=== PATIENT | male | born 1975 | race Caucasian/White ===

== ENCOUNTER → 2023-08-31 | Outpatient (CLI) | payer MEDICAID, SELFPAY ==
--- NOTE | 2023-08-31 10:05 | CT_ITS ---
EXAM: CT LEFT UPPER EXTREMITY WITHOUT INTRAVENOUS CONTRAST CLINICAL INDICATION: reverse Hill Sachs - do 3D RECONS PLS! TECHNIQUE: Helically acquired images were obtained of the left upper extremity without intravenous contrast. 2-D and 3-D reformats were performed by the technologist. This CT exam was performed using one or more of the following dose reduction techniques: automated exposure control, adjustment of the mA and/or kV according to patient size, and/or use of iterative reconstruction technique. RADIATION DOSE: CTDIvol = 24.62 mGy, DLP = 647.51 mGy-cm COMPARISON: Radiographs of the left shoulder of 08/17/2023. FINDINGS: BONES/JOINTS: Large defect in the anterior medial aspect of the humeral head consistent with reverse Hill-Sachs deformity. Adjacent faint soft tissue calcifications medially. No evidence of acute fracture or dislocation. The glenohumeral joint and acromioclavicular joint are otherwise unremarkable. SOFT TISSUES: No evidence of calcific tendinitis. No soft tissue swelling or gas. No radiopaque foreign body. CT/Extremity Upper without Contra IMPRESSION: 1. Large defect in the anterior medial aspect of the humeral head consistent with reverse Hill-Sachs deformity. 2. No evidence of acute fracture or dislocation. Electronically Signed: Marcus Ramos MD at 10:49 EDT ,
--- NOTE | 2023-08-31 10:10 | RAD_ITS ---
STUDY: X-RAY - LEFT SHOULDER REASON FOR EXAM: Male, 47 years old. ARTHROGRAM TECHNIQUE: 3 view(s) of the shoulder. COMPARISON: Comparison is made with prior study dated August 17, 2023. FINDINGS: Contrast is seen within the shoulder joint due to recent intra-articular contrast injection. RAD/Shoulder min 2 Views IMPRESSION: Intra-articular contrast injection is seen. MRI will follow. Electronically Signed: Huseyin Encarnacion MD at 15:36 EDT ,
--- NOTE | 2023-08-31 10:10 | MRI_ITS ---
STUDY: MRI ARTHROGRAM OF THE LEFT SHOULDER REASON FOR EXAM: Male, 47 years old. LARGE REVERSE HILL SACHS AFTER SEIZURE, INSTABILITY, PAIN, LIMITED ROM TECHNIQUE: 10 cc of dilute Clariscan contrast was injected into the left glenohumeral joint. MRI was obtained in all 3 orthogonal planes. In addition, a fat-suppressed T1-weighted sequence was performed with the patient''s arm in the abduction external rotation (ABER) position. COMPARISON: CT arthrogram of the left shoulder dated 08/31/2023. FINDINGS: Normal supraspinatus tendon. Normal infraspinatus tendon. Normal subscapularis tendon. Normal teres minor tendon. Normal supraspinatus muscle. Normal infraspinatus muscle. Normal subscapularis muscle. Normal teres minor muscle. There is a large osseous impaction fracture/defect of the lesser tuberosity of the humerus consistent with a reverse Hill-Sachs deformity. There is a cluster of displaced fracture fragments in the posterolateral glenohumeral joint recess, overall measuring up to 1.5 cm in diameter (axial T1 series 7 image 11; sagittal T1 series 5 images 13-14). There is also suggestion of small loose bodies in the subscapularis recess (sagittal T1 series 5 images 3-4). There is free edge blunting/truncation of the anterior and posterior glenoid madisyn. Normal biceps labral complex. Normal intracapsular long biceps tendon. Normal rotator interval. There is mild acromioclavicular arthrosis. There is a Type II morphology (curved), with a neutral orientation. There is trace subacromial-subdeltoid bursal fluid. Normal visualized coracohumeral and coracoacromial ligaments. Normal quadrilateral space. Normal axillary space. Normal deltoid muscle. Normal trapezius muscle. MRI/Upper Ext Jt Only W/Contrast IMPRESSION: Large osseous impaction fracture/defect of the lesser tuberosity of the humerus consistent with a reverse Hill-Sachs deformity. Cluster of displaced fracture fragments in the posterolateral glenohumeral joint recess, overall measuring up to 1.5 cm in diameter. Suspected small loose bodies in the subscapularis recess. Free edge blunting/truncation of the anterior and posterior glenoid madisyn. Mild acromioclavicular arthrosis. Minimal subacromial-subdeltoid bursitis. No full-thickness rotator cuff tear. Electronically Signed: James Martinez MD at 12:26 EDT ,
[2023-08-31] MEDS: Lidocaine 2% (5ml sdv) 5 ML VIAL.MPF INFILT (10:12)
[2023-08-31] MEDS: Iopamidol 10 ML in Syringe 1 EACH 600 ML INTRAARTIC (10:14)
[2023-08-31] MEDS: Gadoterate Meglumine Diluted 10 ML, Iopamidol 5 ML, Lidocaine 1% (20 ml mdv) 5 ML, Epin... INTRAARTIC (10:14)
--- NOTE | 2023-08-31 12:01 | PCM.OP.PRO ---
Procedure Report Date of Procedure: 08/31/23 Assessment & Plan Assessment/Plan (1) Instability of left shoulder joint: PLAN: PROCEDURE: Arthrogram-left shoulder ORDERING PROVIDER: Dr. Lopez INDICATION: Male, 47 years old. Instability of left shoulder joint. FLUOROSCOPY TIME (if supplied): 0 minutes/40 seconds. 3.64 mGy PROVIDER: Jennifer Cortez EVENT [employer]OMOTIONS COORDINATOR-PL[employer]ER [employer]ADER CONSENT: The procedure as well as the benefits and possible complications including bleeding and infection were explained to the patient. Informed consent was obtained. TECHNIQUE: The patient was positioned supine. The overlying skin was prepped and draped in the usual sterile fashion. Following injection of local anesthetic with 2% lidocaine and under direct fluoroscopic guidance, a 22-gauge spinal needle was placed into the left glenohumeral joint space. 2 cc of Isovue 300 was injected for confirmation. Following this, 10 cc of arthrogram contrast (gadoterate, iopamidol, lidocaine, and epinephrine), compounded by pharmacy, was injected. All elements of maximal sterile barrier technique followed. Patient tolerated procedure well. IMPRESSION: Successful fluoroscopic guided left shoulder arthrogram. Procedures Radiology Radiology Xray Procedures: [id number] Arthrogram Shoulder
== END | disposition home or self-care (01) ==
LOC: RAD 09:33
PROVIDERS: Referring Provider Orthopaedic Surgery Sports Medicine; Visit Provider Orthopaedic Surgery Sports Medicine
DX: M25.312 Other instability, left shoulder (principal)
CPT/HCPCS: 23350; 73030; 73200; 73222; 77002; Q9967